=== PATIENT | female | born 1930 | race Hispanic/Latino ===

== ENCOUNTER 2016-07-18 13:05 | Emergency (ER) | payer MEDICARE ==
[2016-07-18 13:17] VITALS: TEMP 98; O2SAT 99
[2016-07-18 14:15] LABS: BASO % 0.8 % (0.0-2.0); EOS # 0.1 K/uL (0.0-0.7); EOS % 1.1 % (0.0-4.0); HEMATOCRIT 32.7 % (34.0-47.0); LYMPH # 1.7 K/uL (1.0-4.3); LYMPH % 29.3 % (20.0-40.0); MEAN CELL VOLUME 93.1 fl (81.0-99.0); MEAN CORPUSCULAR HEMOGLOBIN 31.2 pg (27.0-31.0); MEAN CORPUSCULAR HGB CONC 33.5 g/dL (33.0-37.0); MEAN PLATELET VOLUME 8.4 fl (7.2-11.7); MONO # 0.5 K/uL (0.0-0.8); MONO % 8.7 % (0.0-10.0); NEUT # 3.5 K/uL (1.8-7.0); NEUT % 60.1 % (50.0-75.0); NRBC % 0.2 % (0.0-0.0); RED CELL DISTRIBUTION WIDTH 14.6 % (11.5-14.5); WHITE BLOOD COUNT 5.8 K/uL (4.8-10.8)
--- NOTE | 2016-07-18 14:15 | ED PDOC ---
HPI: SOB/CHF/COPD Time Seen by Provider: 07/18/16 13:37 Chief Complaint (Nursing): Shortness Of Breath Chief Complaint (Provider): Shortness of Breath History Per: Patient History/Exam Limitations: no limitations Onset/Duration Of Symptoms: Days (1x) Current Symptoms Are (Timing): Still Present Severity: Moderate Associated Symptoms: denies: Fever, Chest Pain, Bloody Cough, Productive Cough, Leg/Calf Pain, Ankle/Leg Swelling, Light-headedness (no syncope), Other (tarry stool, rectal bleeding) Additional Complaint(s): 86 year old female with a pertinent medical history of a pulmonary embolism and diabetes, and currently battling ovarian cancer (receiving chemotherapy monthly ) presents to the ED with complaints of unexplained shortness of breath while at rest that started today. She denies having any other medical complaints including chest pain, cough, fever, leg pain, leg edema, syncope, rectal bleeding, and tarry stools. PMD: Patient does not recall. - Risk Factors PE Risk Factors: Pos: Previous PE Past Medical History Reviewed: Historical Data, Nursing Documentation, Vital Signs Vital Signs: Last Vital Signs Temp 98.0 F 07/18/16 13:13 Pulse 94 H 07/18/16 13:13 Resp 18 07/18/16 13:58 BP 124/73 07/18/16 13:13 Pulse Ox 99 07/18/16 18:43 - Medical History PMH: Diabetes, Pulmonary Embolism - Allergies Allergies/Adverse Reactions: Allergies Allergy/AdvReac Type Severity Reaction Status Date / Time No Known Allergies Allergy Verified 07/18/16 13:12 Review of Systems ROS Statement: Except As Marked, All Systems Reviewed And Found Negative Constitutional: Negative for: Fever Cardiovascular: Negative for: Chest Pain, Light Headedness Respiratory: Positive for: Shortness of Breath. Negative for: Cough Gastrointestinal: Negative for: Other (rectal bleeding, tarry stool) Musculoskeletal: Negative for: Leg Pain (no leg edema) Physical Exam - Reviewed Nursing Documentation Reviewed: Yes Vital Signs Reviewed: Yes - Physical Exam Appears: Positive for: Well, Non-toxic, No Acute Distress Head Exam: Positive for: ATRAUMATIC, NORMOCEPHALIC Skin: Positive for: Normal Color, Warm, Dry Eye Exam: Positive for: Normal appearance ENT: Positive for: Normal ENT Inspection Cardiovascular/Chest: Positive for: Regular Rate, Rhythm Respiratory: Positive for: Normal Breath Sounds (lungs are clear). Negative for : Crackles, Rales, Wheezing, Respiratory Distress Back: Positive for: Normal Inspection Neurologic/Psych: Positive for: Alert, Oriented (3x) - Laboratory Results Result Diagrams: 07/18/16 13:50 07/18/16 13:50 - ECG O2 Sat by Pulse Oximetry: 99 (RA) Pulse Ox Interpretation: Normal - Radiology X-Ray: Interpreted by Me, Viewed By Me X-Ray Interpretation: Other (chronic appearing changes, port in the right chest. No focal infiltrate. No pleural effusion.) Medical Decision Making Medical Decision Makin:37 Initial impression: 86 year old female patient with dyspnea. Initial plan: * XRay chest portable * EKG * b-type natriuretic peptide * CMP * troponin I * CBC * PTT * prothrombin time * reevaluation 13:38 XRay chest results read and reviewed by me. See Course/tx for findings. labs reveal mild dehydraiton, normal BNP, INR therapeutic. trop neg. Hgb stable. Accession No. 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 TECHNIQUE: Axial computed tomography images were obtained of the chest in the pulmonary arterial phase of enhancement. Coronal and sagittal reformatted images were created and reviewed. Intravenous contrast dose: Radiation dose: Total exam DLP = mGy-cm. This CT exam was performed using one or more of the following dose reduction techniques: Automated exposure control, adjustment of the mA and/or kV according to patient size, and/or use of iterative reconstruction technique. Intravenous contrast dose: 100 cc of Omnipaque 320 Radiation dose: Total exam DLP = 306 mGy-cm. FINDINGS: PULMONARY ARTERIES: Unremarkable. No pulmonary embolism. AORTA: No acute findings. No thoracic aortic aneurysm. LUNGS: 6 millimeter pleural-based nodule in the mid left lung. Diffuse peripheral interstitial fibrotic changes. Bilateral upper lung zone posterior pleural thickening. PLEURAL SPACES: Unremarkable. No effusion or pneuomothorax. HEART: Unremarkable. No cardiomegaly. No significant pericardial effusion. LYMPH NODES: No lymphadenopathy. BONES, CHEST WALL: Unremarkable. No fracture or destructive lesion right MediPort catheter with tip in the SVC. OTHER FINDINGS: Bilateral hypodense adrenal nodules. IMPRESSION: 6 millimeter pleural-based nodule in the mid left lung. Diffuse peripheral interstitial fibrotic changes. Bilateral upper lung zone posterior pleural thickening. No pulmonary embolus. Results d.w patient. She does not want to stay in hospital. States dyspnea has completely resolved, denies chest pain, orthopnea, SOB or weakness. INR therapeutic. Will DC to followup w her team at [facility]. Scribe Attestation: Documented by Debra Loyola, acting as a scribe for Nghia West III, DO. Provider Scribe Attestation: All medical record entries made by the Scribe were at my direction and personally dictated by me. I have reviewed the chart and agree that the record accurately reflects my personal performance of the history, physical exam, medical decision making, and the department course for this patient. I have also personally directed, reviewed, and agree with the discharge instructions and disposition. Disposition - Clinical Impression Clinical Impression: Dyspnea
[2016-07-18 14:19] LABS: ALB/GLOB RATIO 1.1 (1.0-2.1); ALKALINE PHOSPHATASE 72 U/L (38-126); ALT/SGPT 16 U/L (9-52); AST/SGOT 39 U/L (14-36); BILIRUBIN,TOTAL 0.4 mg/dl (0.2-1.3); BLOOD UREA NITROGEN 22 mg/dl (7-17); CALCIUM 9.7 mg/dL (8.4-10.2); CARBON DIOXIDE 21 mmol/L (22-30); CHLORIDE 108 mmol/L (98-107); GFR AFRICAN-AMERICAN > 60; GLUCOSE,RANDOM 92 mg/dL (65-105); POTASSIUM 4.1 MMOL/L (3.6-5.0); SODIUM 142 mmol/l (132-148); TOTAL PROTEIN 7.3 G/DL (6.3-8.2)
[2016-07-18 14:47] LABS: PARTIAL THROMBOPLASTIN TIME 35.3 SECONDS (23.3-32.5)
--- NOTE | 2016-07-18 16:47 | RAD ---
HISTORY: Shortness of breath.Technique: Single view portable erect @ 13:40. COMPARISON: No prior. FINDINGS: LUNGS: No active pulmonary disease. PLEURA: No significant pleural effusion identified, no pneumothorax apparent. CARDIOVASCULAR: No radiographic findings to suggest acute or significant cardiovascular disease.Venous access catheter in satisfactory position. OSSEOUS STRUCTURES: No significant abnormalities. VISUALIZED UPPER ABDOMEN: Normal. OTHER FINDINGS: None. IMPRESSION: No active disease.
[2016-07-18] MEDS ORDERED: Sodium Chloride 0.9% 50 ML IV ONE (17:10)
[2016-07-18] MEDS ORDERED: Iodixanol 320 MG/ML 100 ML BOTTLE IV ONE (17:10)
--- NOTE | 2016-07-18 18:33 | CT ---
PROCEDURE: CT Chest with contrast (Pulmonary Angiogram) HISTORY: SOB, hx PE and active malignancy COMPARISON: None available. TECHNIQUE: Axial computed tomography images were obtained of the chest in the pulmonary arterial phase of enhancement. Coronal and sagittal reformatted images were created and reviewed. Intravenous contrast dose: Radiation dose: Total exam DLP = mGy-cm. This CT exam was performed using one or more of the following dose reduction techniques: Automated exposure control, adjustment of the mA and/or kV according to patient size, and/or use of iterative reconstruction technique. Intravenous contrast dose: 100 cc of Omnipaque 320 Radiation dose: Total exam DLP = 306 mGy-cm. FINDINGS: PULMONARY ARTERIES: Unremarkable. No pulmonary embolism. AORTA: No acute findings. No thoracic aortic aneurysm. LUNGS: 6 millimeter pleural-based nodule in the mid left lung. Diffuse peripheral interstitial fibrotic changes. Bilateral upper lung zone posterior pleural thickening. PLEURAL SPACES: Unremarkable. No effusion or pneuomothorax. HEART: Unremarkable. No cardiomegaly. No significant pericardial effusion. LYMPH NODES: No lymphadenopathy. BONES, CHEST WALL: Unremarkable. No fracture or destructive lesion right MediPort catheter with tip in the SVC. OTHER FINDINGS: Bilateral hypodense adrenal nodules. IMPRESSION: 6 millimeter pleural-based nodule in the mid left lung. Diffuse peripheral interstitial fibrotic changes. Bilateral upper lung zone posterior pleural thickening. No pulmonary embolus.
[2016-07-18 19:09] VITALS: BP 126/70; PULSE 72; RESP 16
--- NOTE | 2016-07-18 21:20 | CARD ---
APPROVED REPORT EKG Measurement Heart [id number] <Conclusion> Sinus rhythm with premature atrial complexes Right bundle branch block Abnormal ECG
== END 2016-07-18 19:10 | disposition home or self-care (01) ==
LOC: H.ER 13:05
DX: R06.00 Dyspnea, unspecified (principal); Z86.711 Personal history of pulmonary embolism; E11.9 Type 2 diabetes mellitus without complications; C56.9 Malignant neoplasm of unspecified ovary
CPT/HCPCS: 71010; 71275; 80053; 83880; 84484; 85025; 85610; 85730; 93005; 99282; Q9967